=== PATIENT | female | born 1980 | race Hispanic/Latino ===

== ENCOUNTER 2018-07-26 10:30 | Inpatient (IN) | payer MEDICAID ==
[~2018-07-26] VITALS: Ht 152.4 cm; Wt 125.7 kg
[2018-07-26 11:10] VITALS: BP 138/81
[2018-07-26 11:27] LABS: BASOPHILS % (AUTO) 0.7 % (0.0-5.0); EOSINOPHILS % (AUTO) 1.9 % (0.0-8.0); HEMATOCRIT 45.7 % (36-48); LYMPHOCYTES % (AUTO) 31.3 % (21.0-51.0); MEAN CORPUSCULAR HEMOGLOBIN 29.5 pg (27.0-33.0); MEAN CORPUSCULAR HGB CONC 33.4 g/dL (32.0-36.0); MEAN CORPUSCULAR VOLUME 88.5 fL (79-99); MONOCYTES % (AUTO) 5.5 % (3.0-13.0); NEUTROPHILS % (AUTO) 60.6 % (40.0-77.0); PLATELET COUNT (AUTO) 234 K/uL (130-400); RED BLOOD CELL COUNT(AUTO) 5.17 MIL/uL (4.00-5.50); RED CELL DISTRIBUTION WIDTH 13.8 % (11.0-15.5); WHITE BLOOD COUNT (AUTO) 9.1 K/uL (4.8-10.8)
[2018-07-26 11:40] LABS: BILIRUBIN,TOTAL 1.5 mg/dL (0.2-1.0); CREATININE 0.8 mg/dL (0.5-1.5); POTASSIUM 4.4 mmol/L (3.5-5.1); TOTAL PROTEIN, SERUM 8.3 g/dL (6.0-8.3)
[2018-07-26 11:54] LABS: INR 1.01 (0.85-1.15); PARTIAL THROMBOPLASTIN TIME 30.1 SEC (26.3-35.5); PROTHROMBIN TIME 10.6 SEC (9.6-11.6)
[2018-07-26] MEDS ORDERED: CARV3.12 PO (12:10)
[2018-07-26] MEDS ORDERED: METF-446 PO (12:10)
[2018-07-29] VITALS (52 sets, daily range): BP systolic 92–142; BP diastolic 43–90
[2018-07-29] MEDS ORDERED: CEFUROXIME SODIUM 1.5 GM VIAL IVP ONE (08:00)
[2018-07-29] MEDS ORDERED: FENTANYL CITRATE PF 50 MCG/1 ML 20ML VIAL IJ ONE (09:50)
[2018-07-29] MEDS ORDERED: LIDOCAINE PF 2% 5ML ABBOJECT ONE ×2 (09:50→12:52)
[2018-07-29] MEDS ORDERED: NOREPINEPHRINE BITARTRATE 1 MG/1 ML ML IV ONE ×2 (09:50→11:46)
[2018-07-29] MEDS ORDERED: SODIUM BICARB 50MEQ 50ML VIAL ONE ×2 (09:50→10:07)
[2018-07-29] MEDS ORDERED: HEPARIN SODIUM 1000UNIT/ML 10ML VIAL ONE (09:50)
[2018-07-29] MEDS ORDERED: ESMOLOL HCL 10 MG/ML 10 ML VIAL ONE (09:50)
[2018-07-29] MEDS ORDERED: PROTAMINE SULFATE 10 MG/ML 25ML VIAL IV ONE (09:50)
[2018-07-29] MEDS ORDERED: EPINEPHRINE 1 MG/ML AMPULE ONE (09:50)
[2018-07-29] MEDS ORDERED: AMINOCAPROIC ACID 250 MG/ML 20 ML VIAL IV ONE ×2 (09:50→12:00)
[2018-07-29] MEDS ORDERED: MIDAZOLAM HCL 1 MG/ML 5ML VIAL ONE (09:51)
[2018-07-29] MEDS ORDERED: PROPOFOL 10 MG/ML 20ML VIAL IV ONE (09:51)
[2018-07-29] MEDS ORDERED: ROCURONIUM 10MG/1ML SYR 10 MG/ML ML ONE (09:51)
[2018-07-29] MEDS ORDERED: CEFUROXIME SODIUM 1.5 GM VIAL ONE (10:00)
[2018-07-29] MEDS ORDERED: SODIUM CHLORIDE 0.9% 1000ML 1,000 ML IV ONE (10:00)
[2018-07-29] MEDS ORDERED: POTASSIUM CHLORIDE 20MEQ/100ML 200 ML IV ONE (10:07)
[2018-07-29] MEDS ORDERED: AMIODARONE HCL 50 MG/ML 3 ML VIAL ONE (10:07)
[2018-07-29] MEDS ORDERED: NITROGLYCERIN 50 MG/D5% WATER 1 BOT ONE (10:08)
[2018-07-29] MEDS ORDERED: EPINEPHRINE 1 MG/ML 30ML VIAL IJ ONE (10:29)
[2018-07-29] MEDS ORDERED: VASOPRESSIN 20 UNITS/ML 1ML VIAL ONE (10:50)
[2018-07-29] MEDS ORDERED: THROMBIN-JMI 5000 UNIT/VIAL TP ONE (10:52)
[2018-07-29] MEDS ORDERED: DELNIDO FORMULA 1 BAG IV ONE (10:52)
[2018-07-29] MEDS ORDERED: METHYLPREDNISOLONE SOD SUCC 1,000 MG/8 ML ML IV ONE (11:46)
[2018-07-29] MEDS ORDERED: HEPARIN SODIUM 10000 UNIT/ML 1ML VIAL IJ ONE (12:00)
[2018-07-29] MEDS ORDERED: SODIUM BICARB 8.4% 50ML SYRINGE IVP ONE (12:00)
[2018-07-29] MEDS ORDERED: CALCIUM CHLORIDE 100 MG/ML 10 ML SYG IVP ONE (12:00)
[2018-07-29] MEDS ORDERED: ALBUMIN (HUMAN) 25% 50 ML IV ONE (12:00)
[2018-07-29] MEDS ORDERED: MANNITOL 25% 50ML VIAL IV ONE (12:00)
[2018-07-29] MEDS ORDERED: MAGNESIUM SULFATE 1 GM/2 ML VIAL IM ONE (12:00)
[2018-07-29] MEDS ORDERED: HEPARIN SODIUM 1000UNIT/ML 10ML VIAL IV ONE (12:00)
[2018-07-29] MEDS ORDERED: GLYCOPYRROLATE 1 MG/5 ML SYRINGE ONE (12:52)
[2018-07-29 13:18] LABS: ABG BASE EXCESS -0.8 mmol/L (-2.0-3.0); ABG HCO3 21.8 mmol/L (21.0-28.0); ABG OXYGEN SATURATION 99.4 % (95.0-99.0); ABG PCO2 31 mmHg (32-45)
[2018-07-29] MEDS ORDERED: SODIUM CHLORIDE 0.9% 500ML 500 ML IV SCH (14:09)
[2018-07-29] MEDS ORDERED: PROPOFOL 1000 MG/100 ML 100 ML IV PRN (14:15)
[2018-07-29] MEDS ORDERED: SODIUM CHLORIDE 0.9% 250 ML IV PRN (14:15)
[2018-07-29] MEDS ORDERED: ACETAMINOPHEN 650 MG SUPPOSITORY RC PRN (14:15)
[2018-07-29] MEDS ORDERED: POTASSIUM PHOS 15 mMOL+NS250ML 250 ML IV PRN (14:15)
[2018-07-29] MEDS ORDERED: DEXTROSE 50%-WATER 50 ML DISP.SYRIN IV PRN (14:15)
[2018-07-29] MEDS ORDERED: NOREPINEPHRINE 4MG/NS 250ML 250 ML IV PRN (14:15)
[2018-07-29] MEDS ORDERED: SODIUM CHLORIDE 0.9% 1000ML 1,000 ML IV SCH (14:15)
[2018-07-29] MEDS ORDERED: NITROGLYCERIN 50 MG/D5% WATER 250 BOT IV SCH (14:15)
[2018-07-29] MEDS ORDERED: CALCIUM GLUCONATE 1 GM in SODIUM CHLORIDE 0.9% 50 ML IV PRN (14:15)
[2018-07-29] MEDS ORDERED: GLUCAGON 1MG KIT 1 MG ML IM PRN (14:15)
[2018-07-29] MEDS ORDERED: AMINOCAPROIC ACID 15,000 MG in SODIUM CHLORIDE 0.9% 250 ML IV SCH (14:15)
[2018-07-29] MEDS ORDERED: MAGNESIUM 2GM PREMIX 50ML 50 ML IV PRN (14:15)
[2018-07-29] MEDS ORDERED: ALBUMIN (HUMAN) 5% 250 ML IV PRN (14:15)
[2018-07-29] MEDS ORDERED: SODIUM CHLORIDE 0.9% 10 ML VIAL IVP PRN (14:15)
[2018-07-29] MEDS ORDERED: MORPHINE SULFATE 4 MG/1ML SYG IV PRN (14:15)
[2018-07-29] MEDS ORDERED: EPINEPHRINE 8 MG in SODIUM CHLORIDE 0.9% 250 ML IV PRN (14:15)
[2018-07-29] MEDS ORDERED: ONDANSETRON HCL 4 MG/2 ML VIAL IV PRN (14:15)
[2018-07-29] MEDS ORDERED: OCTYL 2-CYANOACRYLATE 1 EACH TP ONE (14:17)
[2018-07-29] MEDS ORDERED: BACITRACIN 50,000 UNIT VIAL ONE (14:18)
[2018-07-29 14:32] LABS: ABG BASE EXCESS -2.2 mmol/L (-2.0-3.0); ABG HCO3 21.4 mmol/L (21.0-28.0); ABG PCO2 33 mmHg (32-45)
[2018-07-29 15:03] LABS: ABG BASE EXCESS -5.5 mmol/L (-2.0-3.0); ABG HCO3 18.5 mmol/L (21.0-28.0); ABG OXYGEN SATURATION 99.2 % (95.0-99.0); ABG PCO2 31 mmHg (32-45)
[2018-07-29 15:53] LABS: HEMATOCRIT 41.4 % (36-48); MEAN CORPUSCULAR HEMOGLOBIN 30.3 pg (27.0-33.0); MEAN CORPUSCULAR HGB CONC 33.9 g/dL (32.0-36.0); MEAN CORPUSCULAR VOLUME 89.6 fL (79-99); PLATELET COUNT (AUTO) 222 K/uL (130-400); RED BLOOD CELL COUNT(AUTO) 4.62 MIL/uL (4.00-5.50); RED CELL DISTRIBUTION WIDTH 13.9 % (11.0-15.5); WHITE BLOOD COUNT (AUTO) 19.8 K/uL (4.8-10.8)
[2018-07-29 15:59] LABS: ABG BASE EXCESS -5.3 mmol/L (-2.0-3.0); ABG HCO3 20.6 mmol/L (21.0-28.0); ABG OXYGEN SATURATION 98.1 % (95.0-99.0); ABG PCO2 42 mmHg (32-45)
[2018-07-29] MEDS: POTASSIUM CHLORIDE 20MEQ/100ML 100 ML IV PRN ×2 (16:01→17:40)
[2018-07-29] MEDS: SODIUM BICARB 50MEQ 50ML VIAL IV PRN ×2 (16:01→17:30)
[2018-07-29] MEDS: INSULIN REGULAR, HUMAN 3ML 100 UNIT in SODIUM CHLORIDE 0.9% 99 ML IV SCH ×2 (16:03)
[2018-07-29 16:08] LABS: CREATININE 0.8 mg/dL (0.5-1.5); MAGNESIUM 2.1 mg/dL (1.80-2.40); PHOSPHORUS 3.3 mg/dL (2.5-4.9); POTASSIUM 3.3 mmol/L (3.5-5.1)
[2018-07-29] MEDS: MORPHINE SULFATE 2 MG/ML 1ML SYG IV PRN ×2 (16:39→16:43)
[2018-07-29 17:19] LABS: ABG BASE EXCESS -0.5 mmol/L (-2.0-3.0); ABG HCO3 25.6 mmol/L (21.0-28.0); ABG OXYGEN SATURATION 97.6 % (95.0-99.0); ABG PCO2 47 mmHg (32-45)
[2018-07-29] MEDS: KETOROLAC TROMETHAMINE 30MG/ML IV PRN ×2 (17:49→23:50)
[2018-07-29 18:05] LABS: ABG BASE EXCESS 1.4 mmol/L (-2.0-3.0); ABG HCO3 27.7 mmol/L (21.0-28.0); ABG OXYGEN SATURATION 98.5 % (95.0-99.0); ABG PCO2 50 mmHg (32-45)
[2018-07-29 19:25] LABS: ABG BASE EXCESS 0.3 mmol/L (-2.0-3.0); ABG HCO3 25.4 mmol/L (21.0-28.0); ABG OXYGEN SATURATION 98.9 % (95.0-99.0); ABG PCO2 43 mmHg (32-45)
[2018-07-29 21:00] LABS: ABG BASE EXCESS 1.7 mmol/L (-2.0-3.0); ABG HCO3 27.3 mmol/L (21.0-28.0); ABG OXYGEN SATURATION 98.6 % (95.0-99.0); ABG PCO2 46 mmHg (32-45)
[2018-07-29] MEDS: TRAMADOL HCL 50 MG TABLET PO PRN (22:13)
[2018-07-29] MEDS: CEFUROXIME SODIUM 1.5 GM VIAL IVP SCH (22:53)
[2018-07-30] VITALS (68 sets, daily range): BP systolic 89–182; BP diastolic 34–115
[2018-07-30] MEDS: ACETAMINOPHEN 325 MG TAB PO PRN (01:31)
[2018-07-30] MEDS: INSULIN REGULAR, HUMAN 3ML 100 UNIT in SODIUM CHLORIDE 0.9% 99 ML IV SCH ×4 (02:20→23:33)
[2018-07-30] MEDS: TRAMADOL HCL 50 MG TABLET PO PRN ×3 (04:29→17:31)
[2018-07-30 05:10] LABS: MEAN CORPUSCULAR HEMOGLOBIN 30.5 pg (27.0-33.0); MEAN CORPUSCULAR HGB CONC 34.3 g/dL (32.0-36.0); MEAN CORPUSCULAR VOLUME 88.8 fL (79-99); PLATELET COUNT (AUTO) 181 K/uL (130-400); RED BLOOD CELL COUNT(AUTO) 4.27 MIL/uL (4.00-5.50); RED CELL DISTRIBUTION WIDTH 13.9 % (11.0-15.5); WHITE BLOOD COUNT (AUTO) 16.8 K/uL (4.8-10.8)
[2018-07-30 05:20] LABS: INR 0.99 (0.85-1.15); PARTIAL THROMBOPLASTIN TIME 26.6 SEC (26.3-35.5); PROTHROMBIN TIME 10.4 SEC (9.6-11.6)
[2018-07-30 05:25] LABS: CREATININE 0.8 mg/dL (0.5-1.5); MAGNESIUM 1.8 mg/dL (1.80-2.40); PHOSPHORUS 3.9 mg/dL (2.5-4.9); POTASSIUM 4.3 mmol/L (3.5-5.1)
[2018-07-30] MEDS: KETOROLAC TROMETHAMINE 30MG/ML IV PRN ×3 (06:19→20:17)
[2018-07-30] MEDS: FUROSEMIDE 10 MG/ML 2ML VIAL IV SCH ×2 (08:48→23:01)
[2018-07-30] MEDS ORDERED: PANTOPRAZOLE 40 MG/VIAL IV SCH (09:00)
[2018-07-30] MEDS: CEFUROXIME SODIUM 1.5 GM VIAL IVP SCH ×2 (10:57→23:01)
[2018-07-30] MEDS ORDERED: SODIUM CHLORIDE 0.9% 100 ML IV ONE (23:19)
[2018-07-31] VITALS (18 sets, daily range): BP systolic 96–114; BP diastolic 48–72
[2018-07-31 08:20] LABS: POTASSIUM 4.7 mmol/L (3.5-5.1)
[2018-07-31] MEDS: FUROSEMIDE 20 MG TABLET PO SCH ×2 (08:29→21:00)
[2018-07-31] MEDS: PANTOPRAZOLE SODIUM 40 MG TABLET.DR PO SCH (08:29)
[2018-07-31] MEDS: CARVEDILOL 3.125 MG TABLET PO SCH ×2 (08:30→21:01)
[2018-07-31] MEDS: KETOROLAC TROMETHAMINE 30MG/ML IV PRN (08:30)
[2018-07-31] MEDS: INSULIN HUMULIN R 100 UNIT/ML 3ML SQ SCH ×3 (12:07→21:18)
[2018-07-31] MEDS: TRAMADOL HCL 50 MG TABLET PO PRN ×2 (16:30→21:15)
[2018-08-01] VITALS (7 sets, daily range): BP systolic 97–120; BP diastolic 59–86
[2018-08-01 03:51] LABS: CREATININE 0.7 mg/dL (0.5-1.5); POTASSIUM 4.4 mmol/L (3.5-5.1)
[2018-08-01] MEDS: PANTOPRAZOLE SODIUM 40 MG TABLET.DR PO SCH (06:36)
[2018-08-01] MEDS: INSULIN HUMULIN R 100 UNIT/ML 3ML SQ SCH ×4 (06:37→22:04)
[2018-08-01] MEDS: TRAMADOL HCL 50 MG TABLET PO PRN ×2 (07:56→22:42)
[2018-08-01] MEDS: FUROSEMIDE 20 MG TABLET PO SCH ×2 (07:56→20:10)
[2018-08-01] MEDS: CARVEDILOL 3.125 MG TABLET PO SCH ×2 (07:56→20:11)
[2018-08-01] MEDS: METFORMIN HCL 500 MG TABLET PO SCH ×2 (09:42→16:44)
[2018-08-01] MEDS: ACETAMINOPHEN 325 MG TAB PO PRN (16:44)
[2018-08-02 03:49] VITALS: BP 125/69
[2018-08-02] MEDS: INSULIN HUMULIN R 100 UNIT/ML 3ML SQ SCH ×3 (06:47→17:30)
[2018-08-02 07:39] VITALS: BP 121/61
[2018-08-02] MEDS: METFORMIN HCL 500 MG TABLET PO SCH ×2 (08:57→17:27)
[2018-08-02] MEDS: FUROSEMIDE 20 MG TABLET PO SCH (08:58)
[2018-08-02] MEDS: PANTOPRAZOLE SODIUM 40 MG TABLET.DR PO SCH (08:59)
[2018-08-02] MEDS: CARVEDILOL 3.125 MG TABLET PO SCH (08:59)
[2018-08-02] MEDS: TRAMADOL HCL 50 MG TABLET PO PRN (09:00)
[2018-08-02 11:12] VITALS: BP 112/59
[2018-08-02 16:19] VITALS: BP 116/70
[2018-08-02] MEDS ORDERED: FURO20TA6 PO (16:45)
[2018-08-02] MEDS ORDERED: TRAM50TA4 PO (16:45)
== END 2018-08-02 18:51 | disposition home or self-care (01) | DRG 167 ==
LOC: EDSTATUS 10:30 → DAHIP 07-29 09:24 → 2CV 07-29 14:46 → 2BH 07-30 06:10 → 2CH 07-30 13:17 → 2DH 07-31 15:37
PROVIDERS: ADMIT Thoracic Surgery (Cardiothoracic Vascular Surgery); ATTEND Thoracic Surgery (Cardiothoracic Vascular Surgery)
PROC: 02Q50ZZ Repair Atrial Septum, Open Approach (ICD-10-PCS; principal; 2018-07-29 12:37)
PROC: 5A1221Z Performance of Cardiac Output, Continuous (ICD-10-PCS; 2018-07-29 12:37)
PROC: B246ZZ4 Ultrasonography of Right and Left Heart, Transesophageal (ICD-10-PCS; 2018-07-29 12:37)
DX: Q21.1 Atrial septal defect (principal); I27.20 Pulmonary hypertension, unspecified; I42.9 Cardiomyopathy, unspecified; E66.01 Morbid (severe) obesity due to excess calories; Z68.43 Body mass index [BMI] 50.0-59.9, adult; E11.9 Type 2 diabetes mellitus without complications; E78.5 Hyperlipidemia, unspecified; I10 Essential (primary) hypertension; Z79.4 Long term (current) use of insulin; Z83.3 Family history of diabetes mellitus; Z79.899 Other long term (current) drug therapy
CPT/HCPCS: 36415; 71045; 71046; 76998; 80048; 80053; 82435; 82803; 82947; 82948; 83036; 83605; 83735; 83880; 84100; 84132; 84295; 85018; 85025; 85027; 85347; 85610; 85730; 86850; 86900; 86901; 86922; 93005; 94002; 94150; 97039; A4218; A7048; C9113; J0171; J0282; J0697; J1644; J1815; J1885; J1940; J2001; J2150; J2250; J2405; J2704; J2720; J2930; J3010; J3475; J3480; J3490; J7030; J7040; P9045; P9047